=== PATIENT | male | born 1985 | race Caucasian/White ===

== ENCOUNTER 2023-12-29 20:34 | Emergency (ER) | payer SELFPAY ==
[2023-12-29 20:46] VITALS: BP 110/74; PULSE 105; RESP 14; TEMP 36.3; O2SAT 98; BMI 22.9
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
[2023-12-29] MEDS: cyclobenzaprine 10 mg Tablet PO (21:21)
[2023-12-29 22:06] VITALS: PULSE 98; RESP 16; O2SAT 98
== END 2023-12-29 22:07 | disposition home or self-care (01) ==
PROVIDERS: Emergency Provider Emergency Medicine
DX: S10.83XA Contusion of other specified part of neck, initial encounter (principal); W22.8XXA Striking against or struck by other objects, initial encounter
CPT/HCPCS: 70450; 72125; 99284